=== PATIENT | female | born 1955 | race Caucasian/White ===

== ENCOUNTER 2018-08-28 19:41 | Emergency (ER) | payer BC ==
[~2018-08-28] VITALS: Ht 165.1 cm; Wt 98.2 kg
[2018-08-28 19:58] VITALS: BP 177/72
[2018-08-28] MEDS ORDERED: DEXAMETHASONE 4 MG TABLET ONE (21:08)
[2018-08-28] MEDS ORDERED: DEXAMETHASONE 1 MG TABLET PO STA (21:09)
[2018-08-28] MEDS ORDERED: MAALOX/HYOSCYAMINE/LIDOCAINE 45 ML BTL ONE (21:14)
[2018-08-28] MEDS ORDERED: DEXAMETHASONE 4 MG TABLET PO STA (21:19)
[2018-08-28] MEDS ORDERED: MAALOX/HYOSCYAMINE/LIDOCAINE 45 ML BTL PO ONE (21:30)
== END 2018-08-28 21:22 | disposition home or self-care (01) ==
LOC: ED 21:15
DX: K21.9 Gastro-esophageal reflux disease without esophagitis (principal)
CPT/HCPCS: 70360; 99283